=== PATIENT | female | born 1930 | race Caucasian/White ===

== ENCOUNTER 2017-03-31 18:12 | Emergency (ER) | payer MEDICARE, BC ==
[~2017-03-31] VITALS: Ht 160 cm; Wt 52.0 kg
[~2017-03-31 18:12] MED LIST: ALT5C PO; AMIO200T57 PO; AMLO2.5T PO; APIX2.5T PO; BETA1TAB20 PO; BIMA2.5D LEFTEYE; CALC-627 PO; CEPH500C5 PO; CHOL2000 PO; CRAN200C PO; CYAN-19 PO; ESTR0.5T PO; FURO-150 PO; LEVO75TA7 PO; METO25TA6 PO; MULT-342 PO; NAPR-56 PO; OMEG1CAP54 PO; PANT40TA39 PO; RAMI2.5C PO; THIO300C PO
[2017-03-31] MEDS ORDERED: normal saline 1000ML IV soln IVB ONE (18:50)
[2017-03-31] MEDS ORDERED: aspirin 81mg tab.chew PO ONE (18:50)
[2017-03-31 19:08] LABS: BASOPHILS % (AUTO) 0.3 % (0-1); EOSINOPHILS # (AUTO) 0.1 X10'3 (0-0.9); EOSINOPHILS % (AUTO) 1.5 % (0-6); HEMATOCRIT 40.9 % (35.0-45.0); HEMOGLOBIN 13.8 g/dl (12.0-16.0); LYMPHOCYTES # (AUTO) 1.6 X10'3 (1.1-4.8); LYMPHOCYTES % (AUTO) 19.9 % (21-51); MEAN CORPUSCULAR HEMOGLOBIN 29.5 PG (27.0-31.0); MEAN CORPUSCULAR HGB CONC 33.7 % (33.0-36.5); MEAN CORPUSCULAR VOLUME 87.5 FL (78-98); MEAN PLATELET VOLUME 7.5 FL (7.4-10.4); MONOCYTES # (AUTO) 0.4 X10'3 (0-0.9); MONOCYTES % (AUTO) 5.1 % (2-12); NEUTROPHILS % (AUTO) 73.2 % (42-75); PLATELET COUNT 295 X10'3 (140-440); RED BLOOD COUNT 4.68 X10'6 (4.20-5.60); RED CELL DISTRIBUTION WIDTH 16.1 % (11.5-14.5); WHITE BLOOD COUNT 8.2 X10'3 (4.5-11.0)
[2017-03-31 19:16] LABS: INR 1.1 INR; PROTHROMBIN TIME 11.1 SECONDS (9.0-12.0)
[2017-03-31 19:27] LABS: ALANINE AMINOTRANSFERASE 28 U/L (12-78); ALBUMIN 3.8 G/DL (3.4-5.0); ALBUMIN/GLOBULIN RATIO 0.9 (1.1-1.5); ALKALINE PHOSPHATASE 76 IU/L (46-116); ANION GAP 9 (8-16); ASPARTATE AMINO TRANSFERASE 25 U/L (10-37); BILIRUBIN,TOTAL 0.5 MG/DL (0.1-1.0); BLOOD UREA NITROGEN 14 MG/DL (7-18); BUN/CREATININE RATIO 17.9 (6.6-38.0); CALCIUM 9.2 MG/DL (8.5-10.1); CHLORIDE 102 MMOL/L (99-107); CREATININE 0.78 MG/DL (0.40-0.90); GLUCOSE 103 MG/DL (70-104); POTASSIUM 3.8 MMOL/L (3.5-5.1); SODIUM 141 MMOL/L (135-145); TOTAL CARBON DIOXIDE 29.8 MMOL/L (24-32); TOTAL PROTEIN 8.1 G/DL (6.4-8.2); eGFR 70 ML/MIN
[2017-03-31 19:43] LABS: CLARITY,URINE CLEAR (Clear); COLOR,URINE YELLOW (Yellow); GLUCOSE, URINE NEGATIVE (Neg); KETONES,URINE TRACE mg/dl (Neg); LEUKOCYTE ESTERASE ,URINE SMALL (Neg); NITRITES, URINE NEGATIVE (Neg); OCCULT BLOOD,URINE NEGATIVE (Neg); PROTEIN,URINE NEGATIVE (Neg); UA COLLECTION TYPE STRAIGHT CATH; UROBILINOGEN,URINE 0.2 E.U/dL (0.2-1.0)
[2017-03-31 19:48] LABS: BACTERIA,URINE 4+ /HPF (Neg); RBC,URINE NONE SEEN /HPF (0-2)
[2017-03-31 19:49] LABS: SQUAMOUS EPITHELIAL CELL,UR NONE SEEN /LPF (FEW)
[2017-03-31] MEDS ORDERED: CefTRIAXone/D5W-Rocephin 1gm 50 ML IV ONE (20:55)
[2017-03-31] MEDS ORDERED: cefTRIAXone 1g/NS 100ml IVPB 100 ML IV ONE (21:00)
[2017-03-31] MEDS ORDERED: NITR100C6 PO (22:25)
[2017-03-31 23:11] VITALS: BP 172/86
== END 2017-03-31 23:13 | disposition home or self-care (01) ==
LOC: ER 18:13
DX: N39.0 Urinary tract infection, site not specified (principal); I48.91 Unspecified atrial fibrillation; I10 Essential (primary) hypertension; K21.9 Gastro-esophageal reflux disease without esophagitis; Z95.0 Presence of cardiac pacemaker; Z88.8 Allergy status to other drugs, medicaments and biological substances; Z79.899 Other long term (current) drug therapy
CPT/HCPCS: 36415; 71045; 80053; 81001; 83735; 84484; 85025; 85610; 87077; 87088; 87186; 93005; 96361; 96365; 99285; A4310; A4344; J0696; J7030; A4315

== ENCOUNTER 2017-05-28 09:53 | Outpatient (CLI) | payer MEDICARE, BC ==
[~2017-05-28 09:53] MED LIST changes: -ALT5C PO; -NAPR-56 PO; +NITR100C6 PO; +RAMI5CAP PO
[2017-05-28 10:40] LABS: TOTAL HEMOGLOBIN 13.1 G/dl (12.0-16.0)
== END 2017-05-28 23:59 | disposition home or self-care (01) ==
LOC: RT 09:53
PROVIDERS: ATTEND Internal Medicine
DX: R06.2 Wheezing (principal); I10 Essential (primary) hypertension; Z79.899 Other long term (current) drug therapy
CPT/HCPCS: 85018; 94010; 94727; 94729; J7030

== ENCOUNTER 2017-08-03 21:00 | Emergency (ER) | payer MEDICARE, BC ==
[~2017-08-03] VITALS: Ht 160 cm; Wt 47.0 kg
[~2017-08-03 21:00] MED LIST changes: -APIX2.5T PO; -BETA1TAB20 PO; -BIMA2.5D LEFTEYE; +BIMA5DRO4 OP; +BRIM5DRO2 OP; -CALC-627 PO; -CEPH500C5 PO; -CHOL2000 PO; -CRAN200C PO; -CYAN-19 PO; -ESTR0.5T PO; -FURO-150 PO; +LOTE5DRO3 OP; +METO1TAB25 PO; -METO25TA6 PO; -MULT-342 PO; -NITR100C6 PO; -OMEG1CAP54 PO; -PANT40TA39 PO; -THIO300C PO
[2017-08-03 22:14] VITALS: BP 113/59
== END 2017-08-03 22:16 | disposition home or self-care (01) ==
LOC: ER 21:00
DX: H92.02 Otalgia, left ear (principal); I25.10 Atherosclerotic heart disease of native coronary artery without angina pectoris; E78.00 Pure hypercholesterolemia, unspecified; I10 Essential (primary) hypertension; I48.91 Unspecified atrial fibrillation; K21.9 Gastro-esophageal reflux disease without esophagitis; M19.90 Unspecified osteoarthritis, unspecified site; M81.0 Age-related osteoporosis without current pathological fracture; Z90.49 Acquired absence of other specified parts of digestive tract; Z95.0 Presence of cardiac pacemaker; Z88.8 Allergy status to other drugs, medicaments and biological substances; Z79.899 Other long term (current) drug therapy
CPT/HCPCS: 99281

== ENCOUNTER 2018-02-24 18:08 | Emergency (ER) | payer MEDICARE, BC ==
[~2018-02-24] VITALS: Ht 160 cm; Wt 47.6 kg
[~2018-02-24 18:08] MED LIST changes: +AMIO200T40 PO; -AMIO200T57 PO; -AMLO2.5T PO; +AMLO2.5T5 PO; -RAMI2.5C PO; +RAMI2.5C2 PO; -RAMI5CAP PO; +RAMI5CAP65 PO
--- NOTE | 2018-02-24 19:08 | NUR ---
PT TAKEN OFF TRAUMA STATUS PER MD DOZIER AFTER HE REVIEWED THE CT SCAN.
[2018-02-24 20:25] VITALS: BP 113/65
== END 2018-02-24 20:29 | disposition home or self-care (01) ==
LOC: ER 18:08
DX: S51.811A Laceration without foreign body of right forearm, initial encounter (principal); S51.011A Laceration without foreign body of right elbow, initial encounter; S41.111A Laceration without foreign body of right upper arm, initial encounter; S13.4XXA Sprain of ligaments of cervical spine, initial encounter; S60.222A Contusion of left hand, initial encounter; S80.02XA Contusion of left knee, initial encounter; S80.01XA Contusion of right knee, initial encounter; S09.90XA Unspecified injury of head, initial encounter; I48.91 Unspecified atrial fibrillation; I25.10 Atherosclerotic heart disease of native coronary artery without angina pectoris; E78.00 Pure hypercholesterolemia, unspecified; I10 Essential (primary) hypertension; K21.9 Gastro-esophageal reflux disease without esophagitis; M19.90 Unspecified osteoarthritis, unspecified site; Z90.49 Acquired absence of other specified parts of digestive tract; Z95.0 Presence of cardiac pacemaker; Z88.8 Allergy status to other drugs, medicaments and biological substances; Z79.899 Other long term (current) drug therapy; Z79.01 Long term (current) use of anticoagulants; W19.XXXA Unspecified fall, initial encounter; Y93.89 Activity, other specified; Y92.89 Other specified places as the place of occurrence of the external cause; Y99.9 Unspecified external cause status
CPT/HCPCS: 70450; 72125; 73130; 73564; 99284